=== PATIENT | male | born 1985 | race Native Hawaiian/Other Pacific Islander ===

== ENCOUNTER 2016-07-14 13:51 | Outpatient (CLI) | payer OTHER, BC | END 2016-07-14 19:15 | disposition home or self-care (01) | LOC: RAD 13:51 | DX: J01.00 Acute maxillary sinusitis, unspecified (principal) ==

== ENCOUNTER 2017-02-04 14:00 | Observation (INO) | payer OTHER, BC ==
[2017-02-04] VITALS (8 sets, daily range): BP systolic 130–169; BP diastolic 85–98; TEMP 97.8–98.3; Ht 180.3 cm; Wt 100.3 kg
[~2017-02-04] VITALS: Ht 180.3 cm; Wt 100.3 kg
[2017-02-04 14:32] LABS: PLATELET COUNT 353 K/uL (142-355)
[2017-02-04 14:35] LABS: POTASSIUM 3.9 mmol/L (3.6-5.2); SODIUM 140 mmol/L (136-145)
[2017-02-04] MEDS ORDERED: GABA300C2 PO (14:41)
[2017-02-04] MEDS ORDERED: FA-80.8 MG OR (18:15)
[2017-02-04] MEDS ORDERED: ROBAXIN-750750 MG PO (18:16)
[2017-02-04] MEDS ORDERED: PROTONIX20 MG PO (18:17)
--- NOTE | 2017-02-05 00:34 | NUR ---
02/04/172114 CALLED TO ROOM BY STATED HE IS NOT ACTING RIGHT UPON ENTRY TO ROOM ALONG WITH CHARGE NURSE DEBORAH PT STARTING SHAKING ALLOVER.VITAL SIGNS OBTAINED 174/93 158 96 PERCENT RESP 30.PT NOT TALKING IS UNRESPOSIVE TO VOICE WHEN SPOKEN TO.DR. ALEJANDRA NOTIFIED OF PATINET CONDITION.CC 02/04/172117 DR ALEJANDRA IN ROOM TO ACCESS PT.NEW ORDER FOR STAT EKG AND TELEMENTRY.CC 02/04/172123 EKG SHOWS SINUS TACH MD REMAINS AT BEDSIDE.CC 02/04/172129 NEW ORDER RECEIVED FOR BOLUS NS 500ML AND DO LBS MG AND PHOS STAT.B/P 174/93 120 93 PERCENT ON ROOM AIR.CC 02/04/172144 B/P 156/90 120 93 PERCENT 22 RESP.CC 02/04/172154 PT DROWSY BUT IS TALKING WITH IS STILL HAVING RIGHT SIDE WEAKNESS NO FACIAL DROOPING NOTED,PT DOES SAY HE IS HAVING TONGUE NUMBNESS.CC 02/04/172199 DR. ALEJANDRA AT BEDSIDE HAS SPOKE TO DOCTOR IN [facility] REPEAT CT SCAN OF HEAD WILL BE SHIPPED TO [facility].B/P 154/90 111 93 PERCENT ON 02 2LPM.CC 02/04/[address] DONE PER RADIOLOGY. TRANSPORTED VIA BED THEN BACK TO ROOM ACCOMPAINED BY .CN 02/04/172219 B/P 127/82 107 94 02 RESP 22 PT TALKING WITH AND RESPONDS TO QUESTIONS WHEN ASKED.CC 02/04/17 [address] OF [address] SCAN AND LABS,RECIVED ORDER TO CONTACT [facility] FOR TRANSPORT.CC 02/04/17 2325 REPORT GIVEN TO CESAR MEMBRENO AT [facility] IN [facility] ROOM 10.CC 02/04/17 2351 EMS HERE TO TAKE PT TO [facility] ROOM 10 SECOND FLOOR.CC
== END 2017-02-04 23:51 | disposition short-term general hospital (02) ==
LOC: ED 14:00 → MED/SURG 15:30
PROVIDERS: ADMIT Emergency Medicine
DX: G40.89 Other seizures (principal)
CPT/HCPCS: 36415; 80053; 80307; 81000; 82550; 83735; 84100; 84484; 85027; 85610; 85730; 93005; 96374; 96375; 99220; 99284; G0378; G0479; J1100; J1170; J1885; J2360

== ENCOUNTER 2017-02-04 23:54 | Outpatient (CLI) | payer OTHER, BC ==
[~2017-02-04 23:54] MED LIST: FA-80.8 MG OR; GABA300C2 PO; PROTONIX20 MG PO; ROBAXIN-750750 MG PO
== END 2017-02-05 01:21 | disposition short-term general hospital (02) ==
LOC: AMB 23:54
DX: G40.89 Other seizures (principal)
CPT/HCPCS: A0425; A0427

== ENCOUNTER 2018-06-08 12:19 | Outpatient (CLI) | payer BC | END 2018-06-08 19:12 | disposition home or self-care (01) | LOC: RAD 12:19 | DX: R05 Cough (principal) ==

== ENCOUNTER 2018-09-16 11:38 | Outpatient (CLI) | payer BC | END 2018-09-16 23:33 | disposition home or self-care (01) | LOC: RAD 11:38 | DX: M54.41 Lumbago with sciatica, right side (principal); M54.42 Lumbago with sciatica, left side ==

== ENCOUNTER 2021-10-10 14:15 | Outpatient (CLI) | payer OTHER | END 2021-10-10 20:54 | disposition home or self-care (01) | LOC: RAD 14:15 | PROVIDERS: ATTEND Nurse Practitioner Family | DX: M54.41 Lumbago with sciatica, right side (principal); M54.42 Lumbago with sciatica, left side ==